=== PATIENT | female | born 1990 | race Caucasian/White ===

== ENCOUNTER 2023-12-21 13:10 | Outpatient (OUT) | payer BC, SELFPAY ==
--- NOTE | 2023-12-21 13:20 | US_ITS ---
[address] [address] Patient Name: CHELSEA NARVAEZ MRN: [id number] date: 1990 Sex: F Assigned Patient Location: Current Patient Location: US Accession/Order Number: [id number] Exam Date: 12/21/2023 13:21 Report Date: 12/21/2023 15:25 At the request of: MACI GREGORY Procedure: US pelvis w/ transvaginal EXAMINATION: US pelvis w/ transvaginal HISTORY: Pelvic Pain In Female R10.2 COMPARISON: No relevant comparison available. FINDINGS: Transabdominal and transvaginal images The uterus is normal in size, contour and myometrial echotexture, retroverted. The uterus measures 10.8 x 4.2 x 3.3 cm. No focal mass. The endometrium measures 5 mm, normal. The right ovary is normal measuring 3.6 x 1.3 x 2.0 cm. Normal color and Doppler flow. The left ovary is normal measuring 2.6 x 1.6 x 2.0 cm. Normal color and Doppler flow Moderate bilateral periadnexal blood vessels, left greater than right US/US pelvis w/ transvaginal IMPRESSION: Findings suggesting pelvic vascular congestion/uterine vein reflux Electronically authenticated by: LIZ PRATER Date: 12/21/2023 15:25
== END 2023-12-21 13:11 | disposition home or self-care (01) ==
PROVIDERS: Visit Provider Obstetrics & Gynecology
DX: R10.2 Pelvic and perineal pain (principal)
CPT/HCPCS: 76830; 76856

== ENCOUNTER 2024-02-14 10:20 | Outpatient (OUT) | payer BC, SELFPAY ==
--- OUTSIDE RECORDS SUMMARY | 2024-02-14 10:41 | XMS_ITS | CCD ---
Author Organization [facility] Care Team Providers Care Senior Project Coordinator Name Role Phone KELLEN CHRISTIANSON Consulting Unavailable KELLEN CHRISTIANSON Attending Unavailable KELLEN CHRISTIANSON Admitting Unavailable Noe Miller MD Primary Care Provider NOE MILLER Attending Unavailable NOE MILLER Referring Unavailable NOE MILLER Primary Care Unavailable NOE MILLER Attending Unavailable NOE MILLER Referring Unavailable NOE MILLER Primary Care Unavailable NOE MILLER Attending Unavailable NOE MILLER Referring Unavailable NOE MILLER Primary Care Unavailable NOE MILLER Referring Unavailable NOE MILLER Primary Care Unavailable NOE MILLER Referring Unavailable NOE MILLER Primary Care Unavailable NOE MILLER Attending Unavailable NOE MILLER Referring Unavailable NOE MILLER Primary Care Unavailable MACI GREGORY Attending Unavailable Medications Current Medications Medication Drug Class(es) Dates Sig (Normalized) Sig (Original) ALPRAZolam 0.5 mg oral tablet (5 sources) Benzodiazepine Start: 05-04-2023 End: 07-26-2023 take 1 tablet by mouth three times daily as needed for anxiety ALPRAZolam (XANAX) 0.5 mg tablet Indications: Anxiety Take 1 tablet (0.5 mg total) by mouth 3 (three) times a day as needed for anxiety. 90 tablet 0 07/26/2023 Active levothyroxine sodium 0.112 mg oral tablet (4 sources) l-Thyroxine Start: 03-02-2023 End: 07-26-2023 take 1 tablet by mouth in the morning levothyroxine (SYNTHROID, LEVOTHROID) 112 MCG tablet TAKE 1 TABLET BY MOUTH IN THE MORNING PATIENT NEEDS APPOINTMENT FOR FURTHER REFILLS. 90 tablet 3 07/26/2023 Active PARoxetine hydrochloride 20 mg oral tablet (4 sources) Serotonin Reuptake Inhibitor Start: 03-02-2023 End: 07-26-2023 take 1 tablet by mouth in the morning PARoxetine (PAXIL) 20 mg tablet Take 1 tablet (20 mg total) by mouth in the morning. 90 tablet 3 07/26/2023 Active Completed/Discontinued Medications Medication Drug Class(es) Dates Sig (Normalized) Sig (Original) pantoprazole 40 mg delayed release oral tablet (2 sources) Proton Pump Inhibitor Start: 01-10-2023 End: 07-17-2023 take 1 tablet by mouth in the morning pantoprazole (PROTONIX) 40 mg EC tablet Indications: Dyspepsia Take 1 tablet (40 mg total) by mouth in the morning. 30 tablet 0 01/10/2023 07/17/2023 Discontinued (Therapy completed) Problems Active Problems Problem Classification Problem Date Documented Da te Episodic/Chronic Abdominal pain (3 sources) Right lower quadrant pain; Translations: [Abdominal pain] Onset: 11-28-2023 Episodic Anxiety disorders (12 sources) Anxiety; Translations: [Anxiety disorder, unspecified] Onset: 01-12-2017 06-23-2023 Chronic Cardiac dysrhythmias (1 source) Palpitations; Translations: [Palpitations] Onset: 09-14-2023 Episodic Headache; including migraine (1 source) Headache Onset: 09-14-2023 Episodic Nonspecific chest pain (2 sources) Chest pain, unspecified; Translations: [Chest pain, unspecified] Onset: 09-14-2023 Episodic Other screening for suspected conditions (not mental disorders or infectious disease) (4 sources) Encounter for screening for malignant neoplasm of cervix; Translations: [ENC SCREENING MALIG NEOPLASM CERV] Onset: 04-10-2020 Episodic Thyroid disorders (3 sources) Hypothyroidism; Translations: [Hypothyroidism, unspecified] 07-24-2020 Chronic Unclassified (1 source) heart issues Onset: 09-14-2023 Unclassified (1 source) Annual Exam Onset: 07-17-2023 Past or Other Problems Problem Classification Problem Date Documented Da te Episodic/Chronic Mood disorders (3 sources) Mood disorders Onset: 08-09-2021 Resolved: 07-17-2023 08-09-2021 Other complications of (3 sources) Anxiety in ; Translations: [Other mental disorders complicating , second trimester] Onset: 11-30-2017 11-30-2017 Episodic Other complications of (3 sources) Thyroid disease in ; Translations: [Endocrine, nutritional and metabolic diseases complicating , second trimester] Onset: 11-30-2017 Resolved: 07-24-2020 07-24-2020 Episodic Results Test Name Value Interpretation Reference Range Facil ity CT ABDOMEN AND PELVIS W CONT on 11-28-2023 CT ABDOMEN AND PELVIS W CONT CT ABDOMEN AND PELVIS W CONT Study: CT abdomen and pelvis with contrast History:Right lower quadrant abdominal pain Protocol:CT abdomen and pelvis with contrast Contrast 100 mL Omnipaque 300 COMPARISON:No prior Findings: Lung bases:Normal Liver:Normal Spleen:Normal Gallbladder:Normal Bile ducts:No dilatation Pancreas:Normal Adrenals:Normal Kidneys:Normal Ureters:Normal Bladder:Normal Bowel:Stomach is normal. No small bowel dilatation. Stool throughout the colon. The appendix is only partially visualized but appears normal. No diverticulitis. Reproductive organs:Uterus is enlarged and heterogeneous in appearance. There may be a small cyst in the right ovary measuring approximately 2.0 x 1.5 cm. There is some free fluid in the pelvis and some inflammatory stranding around the uterus and in the adnexal regions. There is an IUD present. Mesentry:No adenopathy Peritoneum:No free air. There is free fluid in the deep pelvis Retroperitoneum:No adenopathy Vessels:Normal aorta Abdominal wall:No hernia Bones:Normal IMPRESSION: * No CT evidence of appendicitis. No diverticulitis. * Enlarged heterogeneous uterus with IUD. There is a small cyst in the right ovary. There is some free fluid in the deep pelvis with some strand-like inflammatory change. Could represent some pelvic inflammatory disease pelvic ultrasonography may be helpful for further evaluation. All CT scans at this facility use dose modulation, iterative reconstruction, and/or weight based dosing when appropriate to reduce radiation dose to as low as reasonably achievable Finalized by Henrik Mtz MD on 11/28/2023 11:48 AM Normal [facility] CBC AND AUTO DIFFon 09-15-19 24 ABSOLUTE BASOPHIL 0.0 X10E9/L Normal 0.0-0.2 [facility] Comment on above: Performed By: #### C BCA #### [facility] ([id number]) [address] [place] [address] ABSOLUTE NEUTROPHIL 4.0 X10E9/L Normal 1.5-6.6 [facility] Comment on above: Performed By: #### C BCA #### [facility] ([id number]) [address], [address] [place] [address] Basophils/100 WBC (Bld) 0.7 % Normal [facility] Comment on above: Performed By: #### C BCA #### [facility] ([id number]) [address], [address] [place] [address] Eosinophils (Bld) [#/Vol] 0.0 10*3/uL Normal 0.0-0.4 [facility] Comment on above: Performed By: #### C BCA #### [facility] ([id number]) [address], [address] [place] [address] Eosinophils/100 WBC (Bld) 0.5 % Normal [facility] Comment on above: Performed By: #### C BCA #### [facility] ([id number]) [address], [address] [place] [address] Erythrocyte distribution width (RBC) [Ratio] 12.7 % Normal 11.5-15.0 [facility] Comment on above: Performed By: #### C BCA #### [facility] ([id number]) [address], [address] [place] [address] Hematocrit (Bld) [Volume fraction] 39.1 % Normal 35-47 [facility] Comment on above: Performed By: #### C BCA #### [facility] ([id number]) [address], [address] [place] [address] Hemoglobin (Bld) [Mass/Vol] 13.1 g/dL Normal 11.7-15.5 [facility] Comment on above: Performed By: #### C BCA #### [facility] ([id number]) [address], [address] [place] [address] Lymphocytes (Bld) [#/Vol] 1.4 10*3/uL Normal 1.0-3.5 [facility] Comment on above: Performed By: #### C BCA #### [facility] ([id number]) [address], [address] [place] [address] Lymphocytes/100 WBC (Bld) 23.9 % Normal [facility] Comment on above: Performed By: #### C BCA #### [facility] ([id number]) [address], [address] [place] [address] MCH (RBC) [Entitic mass] 31.1 pg Normal 27-34 [facility] Comment on above: Performed By: #### C BCA #### [facility] ([id number]) [address], [address] [place] [address] MCHC (RBC) [Mass/Vol] 33.6 g/dL Normal 32-36 [facility] Comment on above: Performed By: #### C BCA #### [facility] ([id number]) [address], [address] [place] [address] MCV (RBC) [Entitic vol] 93 fL Normal 80-100 [facility] Comment on above: Performed By: #### C BCA #### [facility] ([id number]) [address], [address] [place] [address] Monocytes (Bld) [#/Vol] 0.5 10*3/uL Normal 0-0.9 [facility] Comment on above: Performed By: #### C BCA #### [facility] ([id number]) [address], [address] [place] [address] Monocytes/100 WBC (Bld) 7.9 % Normal [facility] Comment on above: Performed By: #### C BCA #### [facility] ([id number]) [address], [address] [place] [address] Neutrophils/100 WBC (Bld) 67.0 % Normal [facility] Comment on above: Performed By: #### C BCA #### [facility] ([id number]) [address], [address] [place] [address] Platelet mean volume (Bld) [Entitic vol] 8.2 fL Normal 7-12 [facility] Comment on above: Performed By: #### C BCA #### [facility] ([id number]) [address] [place] [address] Platelets (Bld) [#/Vol] 309 10*3/uL Normal 150-450 [facility] Comment on above: Performed By: #### C BCA #### [facility] ([id number]) [address], [address] [place] [address] RBC COUNT 4.22 X10E12/L Normal 3.80-5.20 [facility] Comment on above: Performed By: #### C BCA #### [facility] ([id number]) [address], [address] [place] [address] WBC (Bld) [#/Vol] 6.0 10*3/uL Normal 4.0-11.0 [facility] Comment on above: Performed By: #### C BCA #### [facility] ([id number]) [address], [address] [place] [address] XR CHEST 2 VWSon 09-15-2023 XR CHEST 2 VWS XR CHEST 2 VWS PA and lateral chest: HISTORY: Chest pain. 2 views the chest are obtained. Lungs are clear. There is no consolidation or effusion. No pneumothorax. Osseous structures appear intact. Cardiac and mediastinal contours are unremarkable. IMPRESSION: No acute findings. Finalized by Vega Genao MD on 09/15/2023 2:12 PM Normal [facility] Vital Signs Date Time Vital Sign Value Performing Clinician Tonie herrera 07-17-2023 13:26-0500 Body height 167.6 cm Noe Miller MD Work Phone: [facility] 07-17-2023 13:26-0500 Body mass index (BMI) [Ratio] 22.11 kg/m2 Noe Miller MD Work Phone: [facility] 07-17-2023 13:26-0500 Body weight 62.14 kg Noe Miller MD Work Phone: [facility] 07-17-2023 13:26-0500 Diastolic blood pressure 64 mm[Hg] Noe Miller MD Work Phone: [facility] 07-17-2023 13:26-0500 Heart rate 70 /min Noe Miller MD Work Phone: [facility] 07-17-2023 13:26-0500 Systolic blood pressure 101 mm[Hg] Noe Miller MD Work Phone: [facility] Encounters Encounter Date Encounter Type Care Provider Facility Start: 12-14-2023 End: 12-14-2023 ambulatory MACI GREGORY Not Available Start: 11-28-2023 End: 11-28-2023 ambulatory [facility] Start: 09-15-2023 End: 09-15-2023 ambulatory [facility] Start: 09-14-2023 End: 09-14-2023 ambulatory [facility] Start: 07-26-2023 Bernadette Mccrary CMA [facility] Comment on above: Anxiety Start: 07-17-2023 End: 07-17-2023 Patient encounter status Noe Miller MD [facility] [employer] Work Phone: Start: 07-17-2023 End: 07-17-2023 Periodic preventive med est patient 18-39 yrs Noe Miller MD Work Phone: [facility] Comment on above: Routine general medi fatemeh examination at a health care facility (Primary Dx) Start: 07-17-2023 End: 07-17-2023 ambulatory [facility] Start: 07-17-2023 Encounter for genera l adult medical examination without abnormal findings NOE Gabriel [facility] Start: 06-23-2023 Refill Yohana Mccrary [employer]CTORY SUPERINTENDENT [facility] Comment on above: Anxiety Start: 04-10-2020 End: 04-10-2020 Patient encounter procedure KELLEN CHRISTIANSON Facility:[facility]1 Procedures Date Procedure Procedure Detail Performing Clinician Start: 07-17-2023 Adult depression screening assessment Noe Miller MD Work Phone: Start: 08-09-2021 Adult depression screening assessment Yohana Mccrary CMA Plan of Treatment Date Care Activity Detail Author Start: 07-17-2024 Adult BMI Screening Adult BMI Screen ing [facility] Start: 07-17-2024 Depression Screening Depression Scre ening [facility] Start: 07-17-2024 Tobacco Screening Tobacco Screening [facility] Start: 01-15-2024 End: 01-15-2024 Patient encounter procedure 01/15/2024 1:30 PM EDT Office Visit [facility] [address] [place], [place] [address] [place] [id number] Noe Miller MD [address] [place] [address], [address] [place], [place] [id number] [facility] Start: 01-11-2024 Adult BMI Screening Adult BMI Screen ing [facility] Start: 01-11-2024 Tobacco Screening Tobacco Screening [facility] Start: 07-17-2023 End: 07-17-2023 Patient encounter procedure 07/17/2023 1:30 PM EST Office Visit [facility] [address] [place] [id number] Noe Miller MD [address] [place] [address], [address] [place] [address] [facility] Start: 01-27-2023 Influenza vaccination Influenza Vacc ine [facility] Start: 11-06-2022 DTaP,Tdap and Td Vaccines (8 - Td or Tdap) DTaP,Tdap and Td Vaccines (8 - Td or Tdap) [facility] Start: 08-09-2022 Depression Screening Depression Scre ening [facility] Start: 2012 Screening for malign ant neoplasm of cervix Pap Smear [facility] End: 07-17-2024 Comprehensive metabolic 2000 panel - Serum or Plasma Comprehensive metabolic panel Lab Routine Routine general medical examination at a health care facility 1 Occurrences starting 07/17/2023 until 07/17/2024 [facility] Comment on above: 1 Occurrences starti ng 07/17/2023 until 07/17/2024 End: 07-17-2024 Lipid panel Lipid panel Lab Routine Routine general medical examination at a health care facility 1 Occurrences starting 07/17/2023 until 07/17/2024 [facility] Work Phone: Comment on above: 1 Occurrences starti ng 07/17/2023 until 07/17/2024 End: 07-17-2024 Thyroid profile includes TSH FT4 Thyroid profile includes TSH FT4 Lab Routine Routine general medical examination at a health care facility 1 Occurrences starting 07/17/2023 until 07/17/2024 [facility] Comment on above: 1 Occurrences starti ng 07/17/2023 until 07/17/2024 Immunizations Immunization Date Immunization Notes Care Provider Fa cility 11-06-2012 tetanus toxoid, redu meggan diphtheria toxoid, and acellular pertussis vaccine, adsorbed Yohana Mccrary [facility] 03-18-2009 meningococcal oligosaccharide (groups A, C, Y and W-135) diphtheria toxoid conjugate vaccine (MCV4O) Yohana Mccrary [facility] 03-18-2009 tetanus toxoid, redu meggan diphtheria toxoid, and acellular pertussis vaccine, adsorbed Yohana Mccrary [facility] 11-11-1998 hepatitis B vaccine, adult dosage [facility] 05-25-1998 hepatitis B vaccine, adult dosage Yohanakwaku Mccrary [facility] 04-21-1998 hepatitis B vaccine, adult dosage Yohanakwaku Mccrary [facility] 09-05-1996 diphtheria, tetanus toxoids and acellular pertussis vaccine Yohanakwaku [facility] 09-05-1996 measles, mumps and rubella virus vaccine Yohana [facility] 09-05-1996 poliovirus vaccine, inactivated Yohanakwaku [facility] 09-15-1993 diphtheria, tetanus toxoids and acellular pertussis vaccine Yohana [facility] 09-15-1993 poliovirus vaccine, inactivated Yohanakwaku [facility] 08-24-1992 haemophilus influenz ae type b vaccine, conjugate unspecified formulation Yohana [facility] 08-24-1992 measles, mumps and rubella virus vaccine Yohana [facility] 02-10-1992 diphtheria, tetanus toxoids and acellular pertussis vaccine [facility] 02-10-1992 haemophilus influenz ae type b vaccine, conjugate unspecified formulation Yohana [facility] 1991 diphtheria, tetanus toxoids and acellular pertussis vaccine Yohana [facility] 1991 haemophilus influenz ae type b vaccine, conjugate unspecified formulation Yohana [facility] 1991 poliovirus vaccine, inactivated Yohanakwaku [facility] 1991 diphtheria, tetanus toxoids and acellular pertussis vaccine Yohana [facility] 1991 haemophilus influenz ae type b vaccine, conjugate unspecified formulation Yohana [facility] 1991 poliovirus vaccine, inactivated Yohana [facility] Payers Date Payer Category Payer Unknown [employer] OUT OF STATE PPO/TRUST [id number] 2022-Present [phone] [address] [place] [address] [id number] 2022 Unknown [id number] 1991 Unknown [id number] 1991 Unknown [id number] 1991 Unknown [id number] 1991 Unknown [id number] 1991 Unknown [id number] 1991 Unknown [id number] 1991 Unknown [id number] 1991 Unknown [id number] 1959 Unknown [id number] Social History Date Type Detail Facility Start: 04-18-2022 Tobacco smoking stat [facility] Ex-smoker [facility] End: 02-27-2012 History of tobacco use Current smoker [facility] End: 02-27-2012 History of tobacco use Cigarette Smoker [facility] Start: 04-18-2022 Tobacco use and exposure Smoke less tobacco non-user [facility] Start: 01-10-2023 End: 07-17-2023 Alcohol intake Current non-drinker of alcohol (finding) [facility] Start: 01-18-2021 End: 07-17-2023 History of Social function [facility] Start: 01-18-2021 End: 07-17-2023 Social connection and isolation panel [facility] Do you belong to any clubs or organizations such as advent groups, unions, fraternal or athletic groups, or school groups? No [facility] Are you now , , , , never or living with a partner? Never [facility] How often to you hav e a drink containing alcohol? Never [facility] How many standard dr inks containing alcohol do you have on a typical day? 1 or 2 [facility] How hard is it for y ou to pay for the very basics like food, housing, medical care, and heating Hard [facility] Adolescent depressio n screening assessment 0 [facility] Do you feel stress - tense, restless, nervous, or anxious, or unable to sleep at night because your mind is troubled all the time - these days [OSQ] To some extent [facility] Start: 01-18-2021 Education 21 [facility] Start: 1991 Sex Assigned At Not on file P [facility] Note 07-26-2023 Telephone Encounter - Yohana Mccrary CMA - 07/26/2023 11:41 AM EST Note Date & Type Note Facility 07-26-2023 Miscellaneous Notes Formattin g of this note might be different from the original. Refill request documented in this encounter [facility] Telephone encounter Note 07-26-2023 Telephone Encounter - Yohana Mccrary CMA - 07/26/2023 11:41 AM EST Note Date & Type Note Facility 07-26-2023 Telephone encount er Note Refill request [facility] History of Present illness Narrative 07-17-2023 Noe Miller MD - 07/17/2023 1:30 PM EST Note Date & Type Note Facility 07-17-2023 History of Presen t illness Narrative Subjective Patient ID: Savanna Narvaez is a 33 y.o. female. Comes in for wellness. She has no major complaints. 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 Sometimes that is stressful for her. She continues on Paxil and Xanax. No irregular use. Denies tobacco or significant alcohol. 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 The following portions of the patient's history were reviewed and updated as appropriate: allergies, current medications, past family history, past medical history, past social history, past surgical history, and problem list. Review of Systems Constitutional: Negative for activity change and unexpected weight change. HENT: Negative for trouble swallowing and voice change. Eyes: Negative for visual disturbance. Respiratory: Negative for cough and shortness of breath. Cardiovascular: Negative for chest pain and leg swelling. Gastrointestinal: Negative for abdominal pain. Genitourinary: Negative for dysuria. Neurological: Negative. Objective Physical Exam Constitutional: Appearance: Normal appearance. Comments: Blood pressure normal HENT: Right Ear: Tympanic membrane normal. Left Ear: Tympanic membrane normal. Mouth/Throat: Pharynx: Oropharynx is clear. Eyes: General: No scleral icterus. Pupils: Pupils are equal, round, and reactive to light. Neck: Comments: No thyroid enlargement or neck mass Cardiovascular: Rate and Rhythm: Normal rate and regular rhythm. Heart sounds: No murmur heard. Pulmonary: Effort: Pulmonary effort is normal. Breath sounds: Normal breath sounds. Abdominal: General: There is no distension. Palpations: Abdomen is soft. Tenderness: There is no abdominal tenderness. Musculoskeletal: General: No deformity. Right lower leg: No edema. Left lower leg: No edema. Neurological: Mental Status: She is alert. Comments: Normal Assessment/Plan Health maintenance reviewed. She remains unstable thyroid replacement. Labs ordered. Routine follow-up 6 months for medication review and annually for wellness. Diagnoses and all orders for this visit: Routine general medical examination at a health care facility - Lipid panel; Future - Comprehensive metabolic panel; Future - Thyroid profile includes TSH FT4; Future documented in this encounter [facility] Note 06-23-2023 Telephone Encounter - Yohana Mccrary CMA - 06/23/2023 4:09 PM EST Note Date & Type Note Facility 06-23-2023 Miscellaneous Notes Formattin g of this note might be different from the original. Refill request documented in this encounter [facility] Telephone encounter Note 06-23-2023 Telephone Encounter - Yohana Mccrary CMA - 06/23/2023 4:09 PM EST Note Date & Type Note Facility 06-23-2023 Telephone encount er Note Refill request [facility] Evaluation note Note Date & Type Note Facility Evaluation note Diagnosis Anxiety Anxiety state, unspecified documented in this encounter [facility] Evaluation note Note Date & Type Note Facility Evaluation note Diagnosis Routine general medical examination at a health care facility- Primary documented in this encounter [facility] Instructions Note Date & Type Note Facility Instructions Not on filedocumented in this en counter [facility] Instructions Note Date & Type Note Facility Instructions Not on filedocumented in this en counter [facility] Summary Purpose Family History No Family History Records FoundNo Family History Records FoundNo Family History Records FoundNo Family History Records Found Advance Directives No Advanced Directives Records FoundNo Advanced Directives Records FoundNo Advanced Directives Records FoundNo Advanced Directives Records Found Additional Source Comments INFORMATION SOURCE (unrecogn ized section and content) DATE CREATED AUTHOR 04/16/2020 [facility] DATE CREATED AUTHOR AUTHOR'S ORGANIZ ATION 11/29/2023 [facility] DATE CREATED AUTHOR AUTHOR'S ORGANIZ ATION 11/29/2023 [facility] DATE CREATED AUTHOR AUTHOR'S ORGANIZ ATION 12/17/2023 [facility] EPIC Reason for Visit (unrecogniz ed section and content) Reason Onset Date Comments Med Refill 06/23/2023 Reason Comments Annual Exam Wellness, no gang supervisor pipe lines wants labs drawn Reason Onset Date Comments Med Refill 07/26/2023 Care Teams (unrecognized sec tion and content) Senior Project Coordinator Relationship Specialty Start Date End Date Noe Miller MD [address] [place] [address], [address] [place] [address] PCP - General Pediatrics 01/02/17 Senior Project Coordinator Relationship Specialty Start Date End Date Noe Miller MD [address] [place] [address], [address] [place] [address] PCP - General Pediatrics 01/02/17 FOR RECORDS PERTAINING TO PATIENTS WHO ARE OR HAVE BEEN ENROLLED IN A CHEMICAL DEPENDENCY/SUBSTANCEABUSE PROGRAM, SOME INFORMATION MAY BE OMITTED. This clinical summary was aggregated from multiple sources. Caution should be exercised in using it in the provision of clinical care. This summary normalizes information from multiple sources, and as a consequence, information in this document may materially change the coding, format and clinical context of patient data. In addition, data may be omitted in some cases. CLINICAL DECISIONS SHOULD BE BASED ON THE PRIMARY CLINICAL RECORDS. [employer] [facility]. provides no warranty or guarantee of the accuracy or completeness of information in this document.
== END 2024-02-14 10:21 | disposition home or self-care (01) ==
PROVIDERS: Visit Provider Obstetrics & Gynecology
DX: Z01.818 Encounter for other preprocedural examination (principal); R10.2 Pelvic and perineal pain; N94.89 Other specified conditions associated with female genital organs and menstrual cycle

== ENCOUNTER 2024-02-23 07:06 | Day surgery (SDC) | payer BC, SELFPAY ==
[2024-02-14 11:23] VITALS: BP 111/73; PULSE 69; TEMP 36.6; O2SAT 99; BMI 22.5
[2024-02-23] VITALS (15 sets, daily range): BP systolic 100–117; BP diastolic 60–80; PULSE 64–106; TEMP 35.9–36.2; O2SAT 94–99; BMI 22.5
--- OUTSIDE RECORDS SUMMARY | 2024-02-23 07:08 | XMS_ITS | CCD ---
Author Organization [facility] Care Team Providers Care Ship Painter Helper Name Role Phone KELLEN CHRISTIANSON Consulting Unavailable [...] Mtz MD on 11/28/2023 11:48 AM Normal [facility] CBC AND AUTO DIFFon 09-15-19 24 ABSOLUTE BASOPHIL 0.0 X10E9/L Normal 0.0-0.2 [facility] Comment on above: Performed By: #### C BCA #### [facility] ([id number]) [address], [address] [place] [address] ABSOLUTE NEUTROPHIL 4.0 X10E9/L Normal 1.5-6.6 [facility] Comment on above: Performed By: #### C BCA #### [facility] ([id number]) [address], [address] [place] [address] Basophils/100 WBC (Bld) 0.7 % Normal [facility] Comment on above: Performed By: #### C BCA #### [facility] ([id number]) [address], [address] [place] [address] Eosinophils (Bld) [#/Vol] 0.0 10*3/uL Normal 0.0-0.4 [facility] Comment on above: Performed By: #### C BCA #### [facility] ([id number]) [address], [address] [place] [address] Eosinophils/100 WBC (Bld) 0.5 % Normal [facility] Comment on above: Performed By: #### C BCA #### [facility] ([id number]) [address], [address] [place] [address] Erythrocyte distribution width (RBC) [Ratio] 12.7 % Normal 11.5-15.0 [facility] Comment on above: Performed By: #### C BCA #### [facility] ([id number]) [address], [address] [place] [address] Hematocrit (Bld) [Volume fraction] 39.1 % Normal 35-47 [facility] Comment on above: Performed By: #### C BCA #### [facility] ([id number]) [address], [address] [place] [address] Hemoglobin (Bld) [Mass/Vol] 13.1 g/dL Normal 11.7-15.5 [facility] Comment on above: Performed By: #### C BCA #### [facility] ([id number]) [address] [place] [address] Lymphocytes (Bld) [#/Vol] 1.4 10*3/uL Normal 1.0-3.5 [facility] Comment on above: Performed By: #### C BCA #### [facility] ([id number]) [address] [place] [address] Lymphocytes/100 WBC (Bld) 23.9 % Normal [facility] Comment on above: Performed By: #### C BCA #### [facility] ([id number]) [address] [place] [address] MCH (RBC) [Entitic mass] 31.1 pg Normal 27-34 [facility] Comment on above: Performed By: #### C BCA #### [facility] ([id number]) [address] [place] [address] MCHC (RBC) [Mass/Vol] 33.6 g/dL Normal 32-36 [facility] Comment on above: Performed By: #### C BCA #### [facility] ([id number]) [address] [place] [address] MCV (RBC) [Entitic vol] 93 fL Normal 80-100 [facility] Comment on above: Performed By: #### C BCA #### [facility] ([id number]) [address] [place] [address] Monocytes (Bld) [#/Vol] 0.5 10*3/uL Normal 0-0.9 [facility] Comment on above: Performed By: #### C BCA #### [facility] ([id number]) [address], [address] [place] [address] Monocytes/100 WBC (Bld) 7.9 % Normal [facility] Comment on above: Performed By: #### C BCA #### [facility] ([id number]) [address], [address] [place] [address] Neutrophils/100 WBC (Bld) 67.0 % Normal [facility] Comment on above: Performed By: #### C BCA #### [facility] ([id number]) [address] [place] [address] Platelet mean volume (Bld) [Entitic vol] 8.2 fL Normal 7-12 [facility] Comment on above: Performed By: #### C BCA #### [facility] ([id number]) [address] [address] [place] [address] Platelets (Bld) [#/Vol] 309 10*3/uL Normal 150-450 [facility] Comment on above: Performed By: #### C BCA #### [facility] ([id number]) [address] [place] [address] RBC COUNT 4.22 X10E12/L Normal 3.80-5.20 [facility] Comment on above: Performed By: #### C BCA #### [facility] ([id number]) [address], [address] [place] [address] WBC (Bld) [#/Vol] 6.0 10*3/uL Normal 4.0-11.0 [facility] Comment on above: Performed By: #### C BCA #### [facility] ([id number]) [address], [address] [place] [address] XR CHEST 2 VWSon 09-15-2023 XR CHEST 2 VWS XR CHEST 2 VWS PA and lateral chest: HISTORY: Chest pain. 2 views the chest are obtained. Lungs are clear. There is no consolidation or effusion. No pneumothorax. Osseous structures appear intact. Cardiac and mediastinal contours are unremarkable. IMPRESSION: No acute findings. Finalized by Vega Genao MD on 09/15/2023 2:12 PM Normal [facility] Vital Signs Date Time Vital Sign Value Performing Clinician Tonie herrera 07-17-2023 13:26-0500 Body height 167.6 cm Noe Miller MD Work Phone: [facility] 07-17-2023 13:26-0500 Body mass index (BMI) [Ratio] 22.11 kg/m2 Noe Miller MD Work Phone: [facility] 07-17-2023 13:26-0500 Body weight 62.14 kg Noe Miller MD Work Phone: [facility] 07-17-2023 13:26-0500 Diastolic blood pressure 64 mm[Hg] Noe Miller MD Work Phone: [facility] 07-17-2023 13:26-0500 Heart rate 70 /min Noe Miller MD Work Phone: [facility] 07-17-2023 13:26-0500 Systolic blood pressure 101 mm[Hg] Noe Miller MD Work Phone: [facility] Encounters Encounter Date Encounter Type Care Provider Facility Start: 12-14-2023 End: 12-14-2023 ambulatory MACI GREGORY Not Available Start: 11-28-2023 End: 11-28-2023 ambulatory [facility] Start: 09-15-2023 End: 09-15-[address] [facility] Start: 09-14-2023 End: 09-14-2023 ambulatory [facility] Start: 07-26-2023 Bernadette Mccrary CMA [facility] Comment on above: Anxiety Start: 07-17-2023 End: 07-17-2023 Patient encounter status Noe Miller MD [facility] Work Phone: Start: 07-17-2023 End: 07-17-2023 Periodic preventive med est patient 18-39 yrs Noe Miller MD [facility] Comment on above: Routine general medi fatemeh examination at a health care facility (Primary Dx) Start: 07-17-2023 End: 07-17-2023 ambulatory [facility] Start: 07-17-2023 Encounter for genera l adult medical examination without abnormal findings NOE [facility] Start: 06-23-2023 Refill Yohana Mccrary HAND TUBE BENDER [facility] Comment on above: Anxiety Start: 04-10-2020 End: 04-10-2020 Patient encounter procedure KELLEN CHRISTIANSON Facility:[facility]1 Procedures Date Procedure Procedure Detail Performing Clinician Start: 07-17-2023 Adult depression screening assessment Noe Miller MD Work Phone: Start: 08-09-2021 Adult depression screening assessment Yohana Mccrary CMA Plan of Treatment Date Care Activity Detail Author Start: 07-17-2024 Adult BMI Screening Adult BMI Screen ing [facility] Start: 07-17-2024 Depression Screening Depression Scre ening [facility] Start: 07-17-2024 Tobacco Screening Tobacco Screening [facility] Start: 01-15-2024 End: 01-15-2024 Patient encounter procedure 01/15/2024 1:30 PM EDT Office Visit [facility] [address] [place], [place] [address] [place] [id number] Noe Miller MD [address] [place] [address], [address] [place], [place] [id number] [facility] Start: 01-11-2024 Adult BMI Screening Adult BMI Screen ing [facility] Start: 01-11-2024 Tobacco Screening Tobacco Screening [facility] Start: 07-17-2023 End: 07-17-2023 Patient encounter procedure 07/17/2023 1:30 PM EST Office Visit [facility] [address] [place] [phone] Noe Miller MD [address] [place] [address], [address] [place] [address] [facility] Start: 01-27-2023 Influenza vaccination Influenza Vacc ine [facility] Start: 11-06-2022 DTaP,Tdap and Td Vaccines (8 - Td or Tdap) DTaP,Tdap and Td Vaccines (8 - Td or Tdap) [facility] Start: 08-09-2022 Depression Screening Depression Scre ening [facility] Start: 2012 Screening for malign ant neoplasm of cervix Pap Smear [facility] End: 07-17-2024 Comprehensive metabolic 2000 panel - Serum or Plasma Comprehensive metabolic panel Lab Routine Routine general medical examination at a health care facility 1 Occurrences starting 07/17/2023 until 07/17/2024 [facility] Comment on above: 1 Occurrences starti ng 07/17/2023 until 07/17/2024 End: 07-17-2024 Lipid panel Lipid panel Lab Routine Routine general medical examination at a health care facility 1 Occurrences starting 07/17/2023 until 07/17/2024 [facility] Work Phone: Comment on above: 1 Occurrences starti ng 07/17/2023 until 07/17/2024 End: 07-17-2024 Thyroid profile includes TSH FT4 Thyroid profile includes TSH FT4 Lab Routine Routine general medical examination at a health care facility 1 Occurrences starting 07/17/2023 until 07/17/2024 [facility] Comment on above: 1 Occurrences starti ng 07/17/2023 until 07/17/2024 Immunizations Immunization Date Immunization Notes Care Provider Fa cility 11-06-2012 tetanus toxoid, redu meggan diphtheria toxoid, and acellular pertussis vaccine, adsorbed Yohana Mccrary [facility] 03-18-2009 meningococcal oligosaccharide (groups A, C, Y and W-135) diphtheria toxoid conjugate vaccine (MCV4O) Yohana Mccrary [facility] 03-18-2009 tetanus toxoid, redu meggan diphtheria toxoid, and acellular pertussis vaccine, adsorbed Yohana Mccrary [facility] 11-11-1998 hepatitis B vaccine, adult dosage [facility] hepatitis B vaccine, adult dosage Yohanakwaku Mccrary [facility] 04-21-1998 hepatitis B vaccine, adult dosage Yohanakwaku Mccrary [facility] 09-05-1996 diphtheria, tetanus toxoids and acellular pertussis vaccine [facility] 09-05-1996 measles, mumps and rubella virus vaccine Yohana [facility] 09-05-1996 poliovirus vaccine, inactivated [facility] 09-15-1993 diphtheria, tetanus toxoids and acellular pertussis vaccine Yohana [facility] 09-15-1993 poliovirus vaccine, inactivated [facility] 08-24-1992 haemophilus influenz ae type b vaccine, conjugate unspecified formulation Yohana [facility] 08-24-1992 measles, mumps and rubella virus vaccine Yohana [facility] 02-10-1992 diphtheria, tetanus toxoids and acellular pertussis vaccine [facility] 02-10-1992 haemophilus influenz ae type b vaccine, conjugate unspecified formulation Yohana [facility] 1991 diphtheria, tetanus toxoids and acellular pertussis vaccine Yohana [facility] 1991 haemophilus influenz ae type b vaccine, conjugate unspecified formulation Yohana [facility] 1991 poliovirus vaccine, inactivated [facility] 1991 diphtheria, tetanus toxoids and acellular pertussis vaccine Yohana [facility] 1991 haemophilus influenz ae type b vaccine, conjugate unspecified formulation Yohana [facility] 1991 poliovirus vaccine, inactivated Yohana [facility] Payers Date Payer Category Payer Unknown [employer] OUT OF STATE PPO/TRUST [id number] 2022-Present [phone] [address] [place] [address] [id number] 2022 Unknown [id number] 1991 Unknown [id number] 1991 Unknown [id number] 1991 Unknown [id number] 1991 Unknown [id number] 1991 Unknown [id number] 1991 Unknown [id number] 1991 Unknown [id number] 1991 Unknown [id number] 1959 Unknown [id number] Social History Date Type Detail Facility Start: 04-18-2022 Tobacco smoking stat [facility] Ex-smoker [facility] End: 02-27-2012 History of tobacco use Current smoker [facility] End: 02-27-2012 History of tobacco use Cigarette Smoker [facility] Start: 04-18-2022 Tobacco use and exposure Smoke less tobacco non-user [facility] Start: 01-10-2023 End: 07-17-2023 Alcohol intake Current non-drinker of alcohol (finding) [facility] Start: 01-18-2021 End: 07-17-2023 History of Social function [facility] Start: 01-18-2021 End: 07-17-2023 Social connection and isolation panel [facility] Do you belong to any clubs or organizations such as rastafari groups, unions, fraternal or athletic groups, or school groups? No [facility] Are you now , , , , never or living with a partner? Never [facility] How often to you hav e a drink containing alcohol? Never [facility] How many standard dr inks containing alcohol do you have on a typical day? 1 or 2 [facility] How hard is it for y ou to pay for the very basics like food, housing, medical care, and heating Hard [facility] Adolescent depressio n screening assessment 0 [facility] Do you feel stress - tense, restless, nervous, or anxious, or unable to sleep at night because your mind is troubled all the time - these days [OSQ] To some extent [facility] Start: 01-18-2021 Education 21 [facility] Start: 1991 Sex Assigned At Not on file P [facility] Note 07-26-2023 Telephone Encounter - Yohana Mccrary CMA - 07/26/2023 11:41 AM EST Note Date & Type Note Facility 07-26-2023 Miscellaneous Notes Formattin g of this note might be different from the original. Refill request documented in this encounter [facility] Telephone encounter Note 07-26-2023 Telephone Encounter - Yohana Mccrary CMA - 07/26/2023 11:41 AM EST Note Date & Type Note Facility 07-26-2023 Telephone encount er Note Refill request [facility] History of Present illness Narrative [...] use. Denies tobacco or significant alcohol. Gets plastic surgeon care elsewhere and is due for follow-up [...] TSH FT4; Future documented in this encounter [facility] Note 06-23-2023 Telephone Encounter - Yohana Mccrary CMA - 06/23/2023 4:09 PM EST Note Date & Type Note Facility 06-23-2023 Miscellaneous Notes Formattin g of this note might be different from the original. Refill request documented in this encounter [facility] Telephone encounter Note 06-23-2023 Telephone Encounter [...] and content) DATE CREATED AUTHOR [facility]16/2020 [facility] DATE CREATED AUTHOR AUTHOR'S ORGANIZ ATION 11/29/2023 [facility] DATE CREATED AUTHOR AUTHOR'S ORGANIZ ATION 11/29/2023 [facility] DATE CREATED AUTHOR AUTHOR'S ORGANIZ ATION 12/17/2023 [facility] Reason for Visit (unrecogniz ed section and content) Reason Onset Date Comments Med Refill 06/23/2023 Reason Comments Annual Exam Wellness, no plastic surgeon wants labs drawn Reason Onset Date Comments Med Refill 07/26/2023 Care Teams (unrecognized sec tion and content) Ship Painter Helper Relationship Specialty Start Date End Date Noe Miller MD [address] [place] [address], [address] [place] [address] PCP - General Pediatrics 01/02/17 Ship Painter Helper Relationship Specialty Start Date End Date Noe Miller MD [address] [place] [address], [address] [place] [address] PCP - General Pediatrics 01/02/17 FOR RECORDS [...] BE BASED ON THE PRIMARY CLINICAL RECORDS. [employer] [facility]. provides no warranty or guarantee of the accuracy or completeness of information in this document.
[2024-02-23 07:13] LABS: Eosinophils Absolute Auto 0.1 10^3/uL (0.0-0.7); Eosinophils Percent Auto 1.2 % (0.9-7.0); Hematocrit 37.7 % (36.0-48.0); Hemoglobin 12.4 g/dL (12.0-16.0); Immature Granulocytes Abs Auto 0.01 10^3/uL (0.00-0.03); Immature Granulocytes Pct Auto 0.2 % (0.0-0.5); Lymphocytes Absolute Auto 1.7 10^3/uL (1.2-3.8); Lymphocytes Percent Auto 41.6 % (20.5-60.0); Mean Corpuscular HGB Conc 32.9 g/dL (29.9-35.2); Mean Corpuscular Hemoglobin 30.5 pg (26.7-34.0); Mean Corpuscular Volume 92.6 fL (81.0-99.0); Monocytes Absolute Auto 0.3 10^3/uL (0.3-0.8); Monocytes Percent Auto 7.7 % (1.7-12.0); Neutrophils Absolute Auto 1.9 10^3/uL (1.4-6.5); Neutrophils Percent Auto 48.3 % (43.0-75.0); Platelet Count 284 10^3/uL (150-450); Red Blood Count 4.07 10^6/uL (4.20-5.40); Red Cell Distribution Width 12.6 % (11.0-15.0)
[2024-02-23 07:33] LABS: HCG Quantitative <1 mIU/mL
[2024-02-23] MEDS: LACTATED RINGER'S SOLUTION 1,000 ML 50 ML IV ×2 (07:35→09:16)
--- NOTE | 2024-02-23 09:32 | PM.ONB ---
Brief Operative Note Date of procedure: 02/23/24 Pre-op diagnosis general: pelvic pain, aub, dysmenorrhea, dyspareunia Post-op diagnosis: other (posterior endometrial implants(endometriosis)) Procedure: NAME OF PROCEDURE: [ D&c hysteroscopy, dx laparoscopy, lysis of omental adhesion from anterior abdominal wall] PROCEDURE: The patient was taken back to the Operating Room where she was prepped and draped in normal sterile fashion after being placed under general anesthesia without difficulty. She was also placed in the dorsal lithotomy position. A weighted speculum was placed in the patient?s vagina. The anterior lip of the cervix was identified and grasped with a single tooth tenaculum. The patient?s uterus was then sounded roughly to [? 8] cm. The patient was then gently dilated using Hegar dilators. The hysteroscope was passed through the patient?s cervix into the uterus. Both ostia were identified. fluffy appearing endometrium. No gross evidence of malignancy, no gross evidence of polyps or fibroids. The hysteroscope was then removed from the uterus. gentle currettage until a gritty texture was noted. The endometrial curettings were sent out to pathology. The single tooth tenaculum was then removed from the patient's anterior lip of the cervix where excellent hemostasis was noted. All instruments were removed from the patient?s vagina. A sponge stick was placed into the patient's vagina. Attention was turned to the patient's abdomen, where a small umbilical incision was made. The fascia was tented using Fabiana clamps and the fascia was entered sharply. Confirmation of intraabdominal placement of the 10 mm port was confirmed under direct visualization using a laparoscope. The patient's abdomen was then insufflated using CO2 gas with approximately 4 liters. A second port was placed left laterally, this was done under direct visualization with a 5 mm port. Survey of the patient's abdomen demonstrated normal liver and gallbladder. Survey of the patient's pelvic anatomy demonstrated normal appearing rt and lt ovary and tubes as well as normal appearing uterus. posterior culdesac endometrial implants could be noted, no evidence of any pelvic disease was seen, normal appearing pelvic cavity. All instruments were removed from the patient's abdomen. The patient's abdomen was deinsufflated of CO2 gas. The patient tolerated the procedure well. Sponge stick was removed from the patient's vagina. The patient's infraumbilical fascia was closed using #0 Vicryl on a GI needle. The patient's skin was closed laterally and infraumbilically using 4-0 Vicryl. The patient tolerated the procedure well. Sponge, lap and needle counts were correct x 2. The patient was taken to Recovery Room in stable condition. Anesthesia: GETA and MAC Surgeon: Dion Canas Fence Making Machine Operator: Chloe Neumann Estimated blood loss (mL): 5 Pathology: other (endometrial currettings) Condition: stable Disposition: PACU Urinary Catheter Management Urinary Catheter Management Urethral: Cath placed during this visit: no
[2024-02-23] MEDS: HYDROCODONE/ACET 5-325 MG TABLET 1 TAB PO (10:26)
[2024-02-23] MEDS: HYDROMORPHONE HCL 0.5 MG/0.5 ML SYRINGE IV (10:26)
--- NOTE | 2024-02-23 12:29 | PC.NURSE ---
1210: pt ambulates to bathroom with minimal assistance,pt voids without difficulty.
== END 2024-02-23 12:20 | disposition home or self-care (01) ==
PROVIDERS: Visit Provider Obstetrics & Gynecology
PROC: (CPT 840; principal; 2024-02-23 08:10)
DX: R10.2 Pelvic and perineal pain (principal); N94.89 Other specified conditions associated with female genital organs and menstrual cycle; E07.9 Disorder of thyroid, unspecified
CPT/HCPCS: 49320; 58558; 36415; 84702; 85025; 88305; J1100; J1170; J1885; J2250; J2405; J2704; J2710; J3010